=== PATIENT | female | born 1980 | race Caucasian/White ===

== ENCOUNTER 2017-05-28 16:38 | Emergency (ER) | payer OTHER ==
[~2017-05-28] VITALS: Ht 160 cm; Wt 98.0 kg
[2017-05-28] MEDS ORDERED: ACETAMINOPHEN 325 MG TABLET PO ONE (19:00)
[2017-05-28 21:10] VITALS: BP 137/91
== END 2017-05-28 21:11 | disposition home or self-care (01) ==
LOC: EMS 16:43
DX: S63.501A Unspecified sprain of right wrist, initial encounter (principal); X58.XXXA Exposure to other specified factors, initial encounter; Y93.89 Activity, other specified; Y92.89 Other specified places as the place of occurrence of the external cause; Y99.9 Unspecified external cause status
CPT/HCPCS: 99284